=== PATIENT | female | born 1975 | race American Indian/Alaskan Native ===

== ENCOUNTER 2019-08-30 09:53 | Observation (INO) | payer MEDICAID ==
--- NOTE | 2019-08-28 13:40 | Anesthesia Consultation ---
Anesthesia Consult and Med Hx Date of service: 08/30/19 - Airway Anesthetic Teeth Evaluation: Good (crack left upper molar) ROM Head & Neck: Adequate Mental/Hyoid Distance: Adequate Mallampati Class: Class III Intubation Access Assessment: Possibly Difficult - Pulmonary Exam CTA: Yes - Cardiac Exam Cardiac Exam: RRR - Pre-Operative Health Status ASA Pre-Surgery Classification: ASA2 Proposed Anesthetic Plan: General Nerve Block: TAP - Pulmonary Hx Smoking: No Hx Respiratory Symptoms: No - Cardiovascular System Hx Hypertension: Yes Hx Heart Attack/AMI: No Hx Percutaneous Transluminal Coronary Angioplasty (PTCA): No - Central Nervous System CVA: No Hx Psychiatric Problems: No - Gastrointestinal Hx Gastroesophageal Reflux Disease: Yes (well controlled; no meds) - Endocrine Hx Renal Disease: No Hx Liver Disease: No Hx Insulin Dependent Diabetes: No Hx Non-Insulin Dependent Diabetes: No Hx Thyroid Disease: No - Hematic Hx Anemia: Yes (no transfusion hx) - Other Systems Hx Obesity: Yes (BMI 33) - Additional Comments Anesthesia Medical History Comments: No hx anesthetic complications. BP significantly elevated at pre-assessment appointment though patient reports much lower at office visit earlier in the day. Instructed to take both antihypertensives DOS.
[2019-08-28 13:50] LABS: Basophils # (Auto) 0.1 K/mm3 (0.0-0.1); Basophils % (Auto) 2.1 % (0.0-1.8); Eosinophils % (Auto) 0.5 % (0.0-4.3); Hematocrit 35.6 % (30.3-42.9); Hemoglobin 11.3 gm/dl (10.1-14.3); Lymphocytes # (Auto) 1.2 K/mm3 (1.2-5.4); Lymphocytes % (Auto) 36.6 % (13.4-35.0); Mean Corpuscular HGB Conc 32 % (30-34); Mean Corpuscular Volume 81 fl (79-97); Monocytes # (Auto) 0.4 K/mm3 (0.0-0.8); Monocytes % (Auto) 13.5 % (0.0-7.3); Platelet Count 320 K/mm3 (140-440); Red Blood Count 4.38 M/mm3 (3.65-5.03); Red Cell Distribution Width 16.9 % (13.2-15.2)
[2019-08-28 13:54] LABS: BUN/Creatinine Ratio 17; Blood Urea Nitrogen 10 mg/dL (7-17); Calcium 9.2 mg/dL (8.4-10.2); Hemolysis Index 14
--- NOTE | 2019-08-30 07:36 | History and Physical Report ---
History of Present Illness Date of examination: 08/30/19 Date of admission: August 30, 2019 Chief complaint: Dysmenorrhea and dysfunctional uterine bleeding History of present illness: 44-year-old -0-0-2 with a history of dysfunctional uterine bleeding. The patient has a known history of uterine fibroids and has been experiencing painful heavy menses. Ultrasound demonstrated findings of leiomyomas and an enlarged uterus. The patient is elected to undergo definitive surgical management. 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 Social history: single - Obstetrical History : 2 Para: 2 Hx # Term Pregnancies: 2 Number of Pregnancies: 0 Spontaneous Abortions: 0 Induced : 0 Number of Living Children: 2 Medications and Allergies Allergies Allergy/AdvReac Type Severity Reaction Status Date / Time latex Allergy Hives Verified 08/18/19 10:54 Home Medications Medication Instructions Recorded Confirmed Last Taken Type Losartan/Hydrochlorothiazide 1 each PO DAILY 08/18/19 08/18/19 Unknown History [Losartan-Hctz 50-12.5 mg Tab] amLODIPine [Norvasc] 10 mg PO DAILY 08/18/19 08/18/19 Unknown History Active Meds: Active Medications Celecoxib (Celebrex) 200 mg PO PREOP NR Stop: 08/30/19 23:59 Fentanyl (Sublimaze) 100 mcg IV ONCE PRN PRN Reason: sedation for nerve block Gabapentin (Gabapentin) 600 mg PO PREOP NR Stop: 08/30/19 23:59 Lactated Ringer's (Lactated Ringers) 1,000 mls @ 100 mls/hr IV DIRECT MYRON Magnesium Oxide (Mag-Ox) 400 mg PO PREOP MYRON Midazolam HCl (Versed) 2 mg IV PREOP NR Stop: 08/30/19 23:59 Review of Systems All systems: negative Genitourinary: vaginal bleeding, pelvic pain - Vital Signs Vital signs: Vital Signs Temp Pulse Resp BP Pulse Ox 97.8 F 76 20 188/106 98 08/28/19 12:45 08/28/19 12:45 08/28/19 12:45 08/28/19 12:45 08/28/19 12:45 Temp Pulse Resp BP Pulse Ox 97.8 F 76 20 188/106 98 08/28/19 12:45 08/28/19 12:45 08/28/19 12:45 08/28/19 12:45 08/28/19 12:45 - Physical Exam Breasts: Positive: deferred Cardiovascular: Regular rate Lungs: Positive: Clear to auscultation Abdomen: Positive: normal appearance Results Result Diagrams: 08/28/19 12:50 08/28/19 12:50 All other labs normal. Assessment and Plan - Patient Problems (1) Leiomyoma Status: Acute Plan to address problem: The patient is scheduled to undergo a robotic hysterectomy (2) Dysmenorrhea Status: Acute (3) Menorrhagia Status: Acute
[~2019-08-30 09:53] MED LIST: CELECOXIB 200 MG CAP PO NR; GABAPENTIN 300 MG CAP PO NR; LACTATED RINGERS 1,000 ML IV SCH; MAGNESIUM OXIDE 400 MG TAB PO SCH; MIDAZOLAM 2 MG/2 ML INJ IV NR; ceFAZolin/Water 2 GM/20 ML 2 GM/20 ML SYRINGE IV NR; fentaNYL 100 MCG/2 ML INJ IV PRN
[2019-08-30] MEDS ORDERED: BUPIVACAINE/PF (0.25%) 2.5 MG/ML 30 ML VIAL INFILTRATI ONE (10:17)
[2019-08-30] MEDS ORDERED: dexAMETHasone 4 MG/ML VIAL ONE (10:18)
[2019-08-30] MEDS ORDERED: NEOMY 40 MG/POLYMYXIN B 200,000 UNITS/ML (GU) AMPULE IR ONE ×2 (10:23→12:18)
[2019-08-30] MEDS ORDERED: HYDROmorphone 1 MG/1 ML INJ IV PRN (10:29)
--- NOTE | 2019-08-30 10:29 | Anesthesia Day of Surgery ---
Anesthesia Day of Surgery - Day of Surgery Patient Examined: Yes Patient H&P Reviewed: Yes Patient is NPO: Yes
[2019-08-30] MEDS ORDERED: HYDROmorphone 1 MG/1 ML INJ ONE (11:04)
[2019-08-30] MEDS ORDERED: propofoL 200 MG/20 ML VIAL IV ONE (11:05)
[2019-08-30] MEDS ORDERED: LIDOCAINE MPF (2%) 20 MG/1 ML VIAL 5 ML ONE (11:05)
[2019-08-30] MEDS ORDERED: ROCURONIUM 50 MG/5 ML INJ IV ONE (11:06)
[2019-08-30] MEDS ORDERED: SODIUM CHLORIDE 0.9% IRR 1,500 ML BOTTLE IR ONE (12:18)
[2019-08-30] MEDS ORDERED: SODIUM CHLORIDE 0.9% IRRIG SOLN 2000 ML IR ONE (12:19)
--- NOTE | 2019-08-30 12:40 | Operative Report ---
Operative Report Operative Report: Date of surgery: August 30, 2019 Preoperative diagnoses: Symptomatic uterine fibroids; menorrhagia; dysmenorrhea Postoperative diagnoses: Same as above Procedure: Robotic hysterectomy; bilateral salpingectomy Surgeon: Krissy Emmanuel M.D. Publications Manager: Carrie Castro Anesthesia: Gen. endotracheal anesthesia Estimated blood loss: 125 mL Pathology: Uterus, cervix, leiomyomas, bilateral tubes Indication: 44-year-old -0-0-2 with a history of symptomatic uterine fibroids. The patient elected for definitive surgical management. Procedure: The patient was taken to the operating room and given general endotracheal anesthesia without complication. She is prepped and draped in a normal sterile fashion. A bivalve speculum was placed in the patient's vagina and a single- tooth tenaculum placed on the anterior lip of the cervix. The uterus was sounded with the uterine sound. A Frontierre uterine manipulator was placed in the bivalve speculum was then removed. Attention was then turned to the patient's abdomen where a millimeter supra umbilical skin incision was then made. A Veres s needle was placed and peritoneal entry was verified water-filled syringe. Insufflation of the peritoneal cavity was performed with CO2 gas. The 12 mm trocar was then placed under direct visualization. An additional 8 mm trocar was placed on the patient's left and right lateral side just opposite of the supraumbilical trocar. An additional 5 mm right lateral trocar was then placed as the accessory port. The patient was then placed in steep Trendelenburg. The da Ry robot was then engaged. A fenestrated forcep was placed in arm 2 and a vessel sealer was placed in arm 1. The surgeon then transferred to the surgical console. General survey revealed an enlarged fibroid uterus with normal tubes and ovaries bilaterally. Surgical findings were consistent with a prior tubal ligation. The mesosalpinx was then isolated on the right. The vessel sealer was used to coagulate the mesosalpinx which was then transected. The tube was transected from the ovary. The tubo-ovarian ligament was then coagulated and transected. The round ligament was then coagulated and transected also. The vesicouterine peritoneum was then entered from the patient's right side. The uterine vessels were then coagulated with the vessel sealer. The vessels were then transected . Attention was then turned to the patient's left side where the tubo-ovarian ligament and mesosalpinx were again isolated coagulated and transected. The vesical peritoneum was then entered from the left and joined in the midline. Peritoneum was reflected off of the lower uterine segment. Uterine vessels were then coagulated and then transected. The blood supply to the uterus was adequately contained, a posterior colpotomy was made. The V care ring was visualized. Posterior colpotomy was created with the monopolar scissors. The incision was continued circumferentially until anterior colpotomy was made. The cervix and uterus were amputated from the vaginal cuff. The uterus is bivalved in order to facilitate delivery through the vagina. The uterus was then removed along with the tubes bilaterally through the vagina and a warm laparotomy sponge was placed and maintain the pneumoperitoneum. The vaginal cuff was then closed in a running fashion with V lock suture. Irrigation of the pelvis was performed. Hemoblast was applied to the incision. The supraumbilical 12 mm trocar site was closed with the Sarwat Patel device. The skin was then reapproximated with 4-0 Monocryl. The tissue was sent to pathology which included the cervix, leiomyoma, bilateral tubes and uterus. The patient was then successfully extubated. She was then taken to the recovery room in stable condition. All sponge laps and needle counts were correct x2.
[2019-08-30] MEDS ORDERED: oxyCODONE /ACETAMINOPHEN 5-325MG TAB PO PRN (12:41)
[2019-08-30] MEDS ORDERED: MORPHINE 4 MG/1 ML INJ IV PRN (12:41)
[2019-08-30] MEDS ORDERED: ZOLPIDEM 5 MG TAB PO PRN (12:41)
[2019-08-30] MEDS ORDERED: ONDANSETRON 4 MG/2 ML INJ IV PRN (12:41)
[2019-08-30] MEDS ORDERED: GLYCOPYRROLATE 0.4 MG/2 ML INJ ONE (12:59)
[2019-08-30] MEDS ORDERED: NEOSTIGMINE 10MG/10 ML INJ MDV ONE (12:59)
[2019-08-30] MEDS ORDERED: ONDANSETRON 4 MG/2 ML INJ ONE (13:00)
[2019-08-30] MEDS ORDERED: KETOROLAC 30 MG/1 ML INJ ONE (13:08)
[2019-08-30] MEDS ORDERED: MEPERIDINE 25 MG/1 ML INJ ONE (13:10)
[2019-08-30] MEDS ORDERED: MEPERIDINE 25 MG/1 ML INJ IV PRN (13:20)
[2019-08-30] MEDS: KETOROLAC 30 MG/1 ML INJ IV SCH ×2 (13:23→20:30)
[2019-08-30] MEDS ORDERED: D5W/LACTATED RINGERS 1,000 ML IV ONE (13:36)
--- NOTE | 2019-08-30 14:38 | Post Anesthesia Evaluation ---
- Post Anesthesia Evaluation Patient Participated: Yes Airway Patent: Yes Stable Respiratory Function: Yes Nausea/Vomiting: No Temp > 96.8F: Yes Pain Manageable: Yes Adequeate Hydration: Yes Anesthesia Complications: No
[2019-08-30] MEDS ORDERED: IBUPROFEN 600 MG TAB PO SCH (18:00)
[2019-08-30] MEDS: D5W/LACTATED RINGERS 1,000 ML IV SCH (20:41)
[2019-08-31] MEDS: D5W/LACTATED RINGERS 1,000 ML IV SCH (04:49)
[2019-08-31] MEDS: KETOROLAC 30 MG/1 ML INJ IV SCH (04:50)
[2019-08-31 06:01] LABS: Hematocrit 33.8 % (30.3-42.9); Hemoglobin 10.6 gm/dl (10.1-14.3)
--- NOTE | 2019-08-31 08:06 | Progress Note ---
Assessment and Plan - Patient Problems (1) Leiomyoma Current Visit: No Status: Acute Plan to address problem: patient doing well discharge home (2) Dysmenorrhea Current Visit: No Status: Acute (3) Menorrhagia Current Visit: No Status: Acute Subjective - Subjective Date of service: 08/31/19 Interval history: Patient reports feeling well. States she has voided. Pain well controlled Patient reports: appetite normal, voiding normally, pain well controlled Objective - Vital Signs Latest vital signs: Vital Signs Temp Pulse Resp BP Pulse Ox 08/31/19 04:19 98.0 F 63 20 136/70 97 08/30/19 23:22 98.5 F 76 20 122/63 95 08/30/19 20:16 98.2 F 86 20 150/88 97 08/30/19 17:36 97.8 F 87 18 123/72 96 08/30/19 14:16 97.4 F L 75 18 125/77 97 08/30/19 14:00 77 14 124/71 100 08/30/19 13:45 98 F 66 16 123/77 100 08/30/19 13:30 12 08/30/19 13:25 70 14 134/81 100 08/30/19 13:23 16 08/30/19 13:17 68 16 144/88 100 08/30/19 13:10 14 08/30/19 13:05 71 16 129/88 100 08/30/19 13:00 73 16 134/84 100 08/30/19 12:57 97.8 F 100 H 16 135/88 100 08/30/19 11:05 91 H 11 L 148/85 100 08/30/19 11:00 67 17 152/85 100 08/30/19 10:56 16 08/30/19 10:55 84 17 162/104 100 08/30/19 10:25 99 F 91 H 12 153/93 100 08/30/19 10:20 16 08/30/19 10:10 99 F 91 H 12 153/93 100 Intake and Output 08/30/19 08/31/19 08/31/19 22:59 06:59 14:59 Intake Total 1240 Balance 1240 Intake: IV 1000 D5lr 1,000 ml @ 125 mls/ 1000 hr IV DIRECT MYRON Rx#: [id number] Oral 240 Other: Total, Intake Amount 240 Voiding Method Indwelling Catheter Toilet # Voids Indwelling Catheter 350 1,100 Void 1 - Exam Abdomen: Present: normal appearance, soft
--- NOTE | 2019-08-31 08:08 | Discharge Summary ---
Providers - Providers Date of Admission: 08/30/19 12:41 Date of discharge: 08/31/19 Attending physician: JERROD BEEBE Primary care physician: EMMA MEYER Hospitalization Reason for admission: other (uterine fibroids) Procedure: other (robotic hysterectomy) Incision: normal Discharge diagnosis: other (Uterine fibroids) Hospital course: Patient admitted the day of surgery and underwent a robotic hysterectomy. See op note. Postop unremarkable Condition at discharge: Good Disposition: [id number] TO HOME OR SELFCARE - Discharge Diagnoses (1) Leiomyoma Status: Acute (2) Dysmenorrhea Status: Acute (3) Menorrhagia Status: Acute Plan - Discharge Medications Prescriptions: Docusate Sodium [Colace] 100 mg PO BID PRN #60 capsule PRN Reason: Constipation Ibuprofen [Motrin] 800 mg PO Q8HR PRN #60 tablet PRN Reason: Pain, Mild (1-3) oxyCODONE /ACETAMINOPHEN [Percocet 5/325] 1 tab PO Q6HR PRN #30 tablet PRN Reason: Pain - Provider Discharge Summary Activity: no sex for 6 weeks, no heavy lifting 4 weeks, no strenuous exercise Diet: routine Instructions: routine Additional instructions: [] Smoking cessation referral if applicable(refer to patient education folder for contact #) [] Refer to [facility] Booklet Call your doctor immediately for: * Fever > 100.5 * Heavy vaginal bleeding ( >1 pad per hour) * Severe persistent headache * Shortness of breath * Reddened, hot, painful area to leg or breast * Drainage or odor from incision. * Keep incision clean and dry at all times and follow doctor's instructions regarding bathing/showering schedule followup in 4 weeks - Follow up plan Forms: [facility] Discharge Summary
[2019-08-31 09:01] VITALS: BP 144/82
== END 2019-08-31 10:20 | disposition home or self-care (01) ==
LOC: OR 09:53 → OB 12:41
PROVIDERS: ADMIT Obstetrics & Gynecology; ATTEND Obstetrics & Gynecology
DX: D25.9 Leiomyoma of uterus, unspecified (principal); N92.0 Excessive and frequent menstruation with regular cycle; N94.6 Dysmenorrhea, unspecified; I10 Essential (primary) hypertension; Z98.51 Tubal ligation status
CPT/HCPCS: 36415; 58573; 64450; 80048; 84703; 85014; 85018; 85025; 86850; 86900; 86901; 88307; 96374; 96375; 96376; A4217; G0378; J0690; J1100; J1170; J1885; J2175; J2250; J2270; J2405; J2704; J2710; J3010; J7120; J7121; S2900

== ENCOUNTER 2019-09-14 19:24 | Observation (INO) | payer MEDICAID ==
--- NOTE | 2019-09-14 19:45 | Emergency Department Report ---
Blank Doc - Documentation Documentation: 44-year-old female that presents with postop hysterectomy bleeding and complic ations. Was sent by OB. This initial assessment/diagnostic orders/clinical plan/treatment(s) is/are subject to change based on patient's health status, clinical progression and re- assessment by fellow clinical providers in the ED. Further treatment and workup at subsequent clinical providers discretion. Patient/guardians urged not to elope from the ED as their condition may be serious if not clinically assessed and managed. Initial orders include: 1- Patient sent to MAIN ED for further evaluation and treatment 2- labs 3- UA
--- NOTE | 2019-09-14 20:42 | Emergency Department Report ---
ED Female HPI - General Chief complaint: Vaginal Bleeding Stated complaint: VAG BLEED Time Seen by Provider: 09/14/19 19:44 Source: patient Mode of arrival: Ambulatory Limitations: No Limitations - History of Present Illness Initial comments: 44-year-old female status post robotic hysterectomy and bilateral salpingectomy for symptomatic uterine fibroids on August 29 presents to the hospital with vaginal bleeding since yesterday. Yesterday patient had some bleeding with passage of clots. Patient did not have any bleeding this morning but by 5:30 PM she had passed several clots and used 2 pads. Patient complains of right lower quadrant abdominal pain that is moderate and worse with palpation. She denies lightheadedness, dizziness, or fever. She was told by her FIELD NURSE CASE MANAGER that a stitch might have come out and she needs to come to the hospital. - Related Data Home Medications Medication Instructions Recorded Confirmed Last Taken Losartan/Hydrochlorothiazide 1 each PO DAILY 08/18/19 08/30/19 08/29/19 20:00 [Losartan-Hctz 50-12.5 mg Tab] amLODIPine [Norvasc] 10 mg PO DAILY 08/18/19 08/30/19 08/29/19 20:00 Previous Rx's Medication Instructions Recorded Last Taken Type Docusate Sodium [Colace] 100 mg PO BID PRN #60 capsule 08/31/19 Unknown Rx Ibuprofen [Motrin] 800 mg PO Q8HR PRN #60 tablet 08/31/19 Unknown Rx oxyCODONE /ACETAMINOPHEN [Percocet 1 tab PO Q6HR PRN #30 tablet 08/31/19 Unknown Rx 5/325] Allergies Allergy/AdvReac Type Severity Reaction Status Date / Time latex Allergy Hives Verified 08/18/19 10:54 ED Review of Systems ROS: Stated complaint: VAG BLEED Other details as noted in HPI Comment: All other systems reviewed and negative ED Past Medical Hx - Past Medical History Hx Hypertension: Yes (Over 5 years) Hx GERD: Yes Hx Headaches / Migraines: Yes (Migraines) - Surgical History Additional Surgical History: tubal ligation - Social History Smoking Status: Never Smoker Substance Use Type: None - Medications Home Medications: Home Medications Medication Instructions Recorded Confirmed Last Taken Type Losartan/Hydrochlorothiazide 1 each PO DAILY 08/18/19 08/30/19 08/29/19 20:00 History [Losartan-Hctz 50-12.5 mg Tab] amLODIPine [Norvasc] 10 mg PO DAILY 08/18/19 08/30/19 08/29/19 20:00 History Docusate Sodium [Colace] 100 mg PO BID PRN #60 capsule 08/31/19 Unknown Rx Ibuprofen [Motrin] 800 mg PO Q8HR PRN #60 tablet 08/31/19 Unknown Rx oxyCODONE /ACETAMINOPHEN [Percocet 1 tab PO Q6HR PRN #30 tablet 08/31/19 Unknown Rx 5/325] ED Physical Exam - General Limitations: No Limitations - Other Other exam information: General: No acute distress Head: Atraumatic Eyes: normal appearance ENT: Moist mucous membranes Neck: Normal appearance, no midline tenderness Chest: Clear to auscultation bilaterally CV: Regular rate and rhythm Abdomen: Soft, normal bowel sounds, right lower quadrant tenderness no rebound no guarding Back: Normal inspection Extremity: Normal inspection, full range of motion Neuro: Alert O x 3, no facial asymmetry, speech clear, no gross motor sensory deficit Psych: Appropriate behavior Skin: No rash ED Course Vital Signs 09/14/19 09/14/19 09/14/19 19:43 20:38 20:46 Temperature 99.3 F Pulse Rate 103 H 74 Respiratory 16 21 Rate Blood Pressure 135/107 Blood Pressure [Right] O2 Sat by Pulse 98 99 100 Oximetry 09/14/19 09/14/19 09/14/19 20:50 21:00 21:34 Temperature Pulse Rate 79 75 Respiratory 19 14 Rate Blood Pressure 158/96 158/96 Blood Pressure 158/96 [Right] O2 Sat by Pulse 100 100 100 Oximetry 09/14/19 09/14/19 09/14/19 21:46 22:14 22:16 Temperature Pulse Rate 72 77 96 H Respiratory 15 24 20 Rate Blood Pressure 176/89 176/89 176/89 Blood Pressure [Right] O2 Sat by Pulse 100 97 100 Oximetry 09/14/19 22:30 Temperature Pulse Rate Respiratory Rate Blood Pressure 158/98 Blood Pressure [Right] O2 Sat by Pulse Oximetry - Reevaluation(s) Reevaluation #1: 09/14/19 23:01 pt states bleeding has improved. Pt has passed one small clot since 09/14/19 23:05 pt informed FIELD NURSE CASE MANAGER to examine her prior to d/c - Consultations Consultation #1: 09/14/19 20:46 case d/w Dr Tamia Castro, rec ct scan. 09/14/19 23:05 case rediscounted. She will come into the ed to examine pt. 09/15/19 00:20 after ed eval pt will be admitted by aba tutor ED Medical Decision Making - Lab Data Result diagrams: 09/14/19 20:56 09/14/19 20:56 Lab Results 09/14/19 09/14/19 09/14/19 Range/Units 20:56 20:56 21:38 WBC 4.9 (4.5-11.0) K/mm3 RBC 4.25 (3.65-5.03) M/mm3 Hgb 10.8 (10.1-14.3) gm/dl Hct 34.4 (30.3-42.9) % MCV 81 (79-97) fl MCH 26 L (28-32) pg MCHC 32 (30-34) % RDW 15.9 H (13.2-15.2) % Plt Count 394 (140-440) K/mm3 Lymph % (Auto) 24.9 (13.4-35.0) % [place] % (Auto) 14.9 H (0.0-7.3) % Eos % (Auto) 0.4 (0.0-4.3) % Baso % (Auto) 2.0 H (0.0-1.8) % Lymph # 1.2 (1.2-5.4) K/mm3 [place] # 0.7 (0.0-0.8) K/mm3 Eos # 0.0 (0.0-0.4) K/mm3 Baso # 0.1 (0.0-0.1) K/mm3 Seg Neutrophils % 57.8 (40.0-70.0) % Seg Neutrophils # 2.8 (1.8-7.7) K/mm3 Sodium 139 (137-145) mmol/L Potassium 3.5 L (3.6-5.0) mmol/L Chloride 103.4 (98-107) mmol/L Carbon Dioxide 22 (22-30) mmol/L Anion Gap 17 mmol/L BUN 7 (7-17) mg/dL Creatinine 0.7 (0.7-1.2) mg/dL Estimated GFR > 60 ml/min BUN/Creatinine Ratio 10 % Glucose 103 H (65-100) mg/dL Calcium 9.2 (8.4-10.2) mg/dL Total Bilirubin < 0.20 (0.1-1.2) mg/dL AST 46 H (5-40) units/L ALT 47 (7-56) units/L Alkaline Phosphatase 90 (35-129) units/L Total Protein 7.9 (6.3-8.2) g/dL Albumin 3.7 L (3.9-5) g/dL Albumin/Globulin Ratio 0.9 % Urine Color Yellow (Yellow) Urine Turbidity Slightly-cloudy (Clear) Urine pH 6.0 (5.0-7.0) Ur Specific [place] 1.024 (1.003-1.030) Urine Protein 30 mg/dl (Negative) mg/dL Urine Glucose (UA) Neg (Negative) mg/dL Urine Ketones Neg (Negative) mg/dL Urine Blood Lg (Negative) Urine Nitrite Neg (Negative) Urine Bilirubin Neg (Negative) Urine Urobilinogen < 2.0 (<2.0) mg/dL Ur Leukocyte Esterase Neg (Negative) Urine WBC (Auto) 2.0 (0.0-6.0) /HPF Urine RBC (Auto) 146.0 (0.0-6.0) /HPF U Epithel Cells (Auto) 8.0 (0-13.0) /HPF Urine Mucus 3+ /HPF - Radiology Data Radiology results: report reviewed CT ABDOMEN AND PELVIS WITH CONTRAST INDICATION / CLINICAL INFORMATION: Post hysterectomy / bilateral salpingectomy, vaginal bleeding. TECHNIQUE: Axial CT images were obtained through the abdomen and pelvis after 100 mL Omnipaque [address] scans at this location are performed using CT dose reduction for ALARA by means of automated exposure control. COMPARISON: None available. FINDINGS: LOWER CHEST: No significant abnormality. LIVER: No significant abnormality. GALLBLADDER: No significant abnormality. BILE DUCTS: No significant abnormality. PANCREAS: No significant abnormality. SPLEEN: No significant abnormality. ADRENALS: No significant abnormality. RIGHT KIDNEY and URETER: No significant abnormality. LEFT KIDNEY and URETER: No significant abnormality. STOMACH and SMALL BOWEL: No significant abnormality. COLON: No significant ab normality. APPENDIX: No significant abnormality. PERITONEUM: Small amount of free fluid in the dependent pelvis. No free air. No fluid collection. LYMPH NODES: No significant adenopathy. AORTA and ARTERIES: No significant abnormality. IVC and VEINS: No significant abnormality. URINARY BLADDER: No si gnificant abnormality. REPRODUCTIVE ORGANS: Uterus is absent. No significant adnexal abnormality. ADDITIONAL FINDINGS: Fat-containing supraumbilical hernia with a small amount of fluid but no bowel. SKELETAL SYSTEM: No significant abnormality. IMPRESSION: 1. No inflammatory process or bowel obstruction 2. Small amount of free fluid in the pelvis but no organized collection or hematoma. 3. Hysterectomy. - Medical Decision Making She states that bleeding is decreasing. Patient does not require blood transfusion. After evaluation by FIELD NURSE CASE MANAGER attending Dr. Tamia Castro it was decided patient to be admitted for observation and re-evaluated by Dr. Sr Gwyn porter - Differential Diagnosis Postop bleeding, anemia Critical Care Time: No Critical care attestation.: If time is entered above; I have spent that time in minutes in the direct care of this critically ill patient, excluding procedure time. ED Disposition Clinical Impression: Postoperative vaginal bleeding, Status post bilateral salpingectomy, S/P hysterectomy Disposition: OP ADMIT IP TO THIS HOSP Is pt being admited?: Yes Condition: Stable Time of Disposition: 00:20 (Dr Tamia castro)
[2019-09-14] MEDS ORDERED: SODIUM CHLORIDE 0.9% 1000 ML 1,000 ML IV ONE (20:49)
[2019-09-14 21:17] LABS: Basophils # (Auto) 0.1 K/mm3 (0.0-0.1); Eosinophils % (Auto) 0.4 % (0.0-4.3); Hematocrit 34.4 % (30.3-42.9); Hemoglobin 10.8 gm/dl (10.1-14.3); Lymphocytes # (Auto) 1.2 K/mm3 (1.2-5.4); Lymphocytes % (Auto) 24.9 % (13.4-35.0); Mean Corpuscular HGB Conc 32 % (30-34); Mean Corpuscular Volume 81 fl (79-97); Monocytes # (Auto) 0.7 K/mm3 (0.0-0.8); Monocytes % (Auto) 14.9 % (0.0-7.3); Platelet Count 394 K/mm3 (140-440); Red Blood Count 4.25 M/mm3 (3.65-5.03); Red Cell Distribution Width 15.9 % (13.2-15.2)
[2019-09-14 21:38] LABS: Alanine Aminotransferase 47 units/L (7-56); Albumin 3.7 g/dL (3.9-5); BUN/Creatinine Ratio 10; Blood Urea Nitrogen 7 mg/dL (7-17); Calcium 9.2 mg/dL (8.4-10.2); Hemolysis Index 11
[2019-09-14 21:51] LABS: Bilirubin,Urine NEG (Negative); Blood,Urine LG (Negative); Color,Urine Yellow (Yellow); Mucus,Urine 3+ /HPF; Urobilinogen,Urine < 2.0 mg/dL (<2.0)
--- NOTE | 2019-09-14 22:48 | Cat Scan Report ---
CT ABDOMEN AND PELVIS WITH CONTRAST INDICATION / CLINICAL INFORMATION: Post hysterectomy / bilateral salpingectomy, vaginal bleeding. TECHNIQUE: Axial CT images were obtained through the abdomen and pelvis after 100 mL Omnipaque [address] scans at this location are performed using CT dose reduction for ALARA by means of automated exposure control. COMPARISON: None available. FINDINGS: LOWER CHEST: No significant abnormality. LIVER: No significant abnormality. GALLBLADDER: No significant abnormality. BILE DUCTS: No significant abnormality. PANCREAS: No significant abnormality. SPLEEN: No significant abnormality. ADRENALS: No significant abnormality. RIGHT KIDNEY and URETER: No significant abnormality. LEFT KIDNEY and URETER: No significant abnormality. STOMACH and SMALL BOWEL: No significant abnormality. COLON: No significant abnormality. APPENDIX: No significant abnormality. PERITONEUM: Small amount of free fluid in the dependent pelvis. No free air. No fluid collection. LYMPH NODES: No significant adenopathy. AORTA and ARTERIES: No significant abnormality. IVC and VEINS: No significant abnormality. URINARY BLADDER: No significant abnormality. REPRODUCTIVE ORGANS: Uterus is absent. No significant adnexal abnormality. ADDITIONAL FINDINGS: Fat-containing supraumbilical hernia with a small amount of fluid but no bowel. SKELETAL SYSTEM: No significant abnormality. IMPRESSION: 1. No inflammatory process or bowel obstruction 2. Small amount of free fluid in the pelvis but no organized collection or hematoma. 3. Hysterectomy. Signer Name: Ney Abebe MD Signed: 09/14/2019 10:43 PM Workstation Name: [id number]
[2019-09-15] MEDS ORDERED: NALOXONE 0.4 MG/1 ML INJ IV PRN (00:22)
[2019-09-15] MEDS ORDERED: oxyCODONE /ACETAMINOPHEN 5-325MG TAB PO PRN (00:22)
--- NOTE | 2019-09-15 00:31 | History and Physical Report ---
History of Present Illness Date of examination: 09/15/19 Chief complaint: vaginal bleeding History of present illness: Pt is a 44 year old s/p robotic hysterectomy, bilateral salpingectomy on 08/30/19 presents with worsening vaginal bleeding since yesterday after an episode of constipation. She denies anything in the vagina or heavy lifting. 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: fibroids Family/Genetic History: none Social history: no significant social history Medications and Allergies Allergies Allergy/AdvReac Type Severity Reaction Status Date / Time latex Allergy Hives Verified 08/18/19 10:54 Home Medications Medication Instructions Recorded Confirmed Last Taken Type Losartan/Hydrochlorothiazide 1 each PO DAILY 08/18/19 08/30/19 08/29/19 20:00 H istory [Losartan-Hctz 50-12.5 mg Tab] amLODIPine [Norvasc] 10 mg PO DAILY 08/18/19 08/30/19 08/29/19 20:00 History Docusate Sodium [Colace] 100 mg PO BID PRN #60 capsule 08/31/19 Unknown Rx Ibuprofen [Motrin] 800 mg PO Q8HR PRN #60 tablet 08/31/19 Unknown Rx oxyCODONE /ACETAMINOPHEN [Percocet 1 tab PO Q6HR PRN #30 tablet 08/31/19 Unknown Rx 5/325] Active Meds: Active Medications Dextrose/Lactated Ringer's (D5lr) 1,000 mls @ 100 mls/hr IV DIRECT MYRON Ibuprofen (Ibuprofen) 800 mg PO Q8H MYRON Naloxone HCl (Naloxone) 0.1 mg IV Q2MIN PRN PRN Reason: Res Rate </= 8 or 02 SAT < 92% Oxycodone/Acetaminophen (Percocet 5/325) 2 tab PO Q4H PRN PRN Reason: Pain, Moderate (4-6) Review of Systems All systems: negative - Vital Signs Vital signs: Vital Signs Temp Pulse Resp BP Pulse Ox 99.3 F 103 H 16 135/107 98 09/14/19 19:43 09/14/19 19:43 09/14/19 19:43 09/14/19 19:43 09/14/19 19:43 Temp Pulse Resp BP Pulse Ox 99.3 F 96 H 20 158/98 100 09/14/19 19:43 09/14/19 22:16 09/14/19 22:16 09/14/19 22:30 09/14/19 22:16 - Physical Exam Vagina: Positive: other (deep red blood in the vault,no clots presently; cuff appears intact, suture in place ) Uterus: Positive: absent Results Result Diagrams: 09/14/19 20:56 09/14/19 20:56 Abnormal lab results 09/14/19 09/14/19 Range/Units 20:56 20:56 MCH 26 L (28-32) pg RDW 15.9 H (13.2-15.2) % [place] % (Auto) 14.9 H (0.0-7.3) % Baso % (Auto) 2.0 H (0.0-1.8) % Potassium 3.5 L (3.6-5.0) mmol/L Glucose 103 H (65-100) mg/dL AST 46 H (5-40) units/L Albumin 3.7 L (3.9-5) g/dL All other labs normal. Assessment and Plan A: Vaginal Bleeding after hysterectomy on 08/30/19 Hypertension P: Admit for observation Pad counts
[2019-09-15] MEDS ORDERED: D5W/LACTATED RINGERS 1,000 ML IV SCH (01:00)
[2019-09-15] MEDS ORDERED: IBUPROFEN 800 MG TAB ONE (01:06)
[2019-09-15] MEDS: IBUPROFEN 800 MG TAB PO SCH ×2 (01:06→09:00)
--- NOTE | 2019-09-15 12:02 | Short Stay Summary ---
Short Stay Documentation Date of service: 09/14/19 Narrative H&P: The patient was admitted through the emergency department secondary to evidence of vaginal bleeding status post a robotic hysterectomy. The patient states having 2 days of vaginal bleeding with the passage of a clot. She denies any fevers chills nausea vomiting. CT scan of the pelvis and abdomen was unremarkable. - History Principal diagnosis: Vaginal bleeding Past Medical History: No medical history Past Surgical History: Other (Robotic hysterectomy) Social history: no significant social history - Allergies and Medications Current Medications: Allergies latex Allergy (Verified 08/18/19 10:54) Hives Home Medications Medication Instructions Recorded Confirmed Last Taken Type Losartan/Hydrochlorothiazide 1 each PO DAILY 08/18/19 08/30/19 08/29/19 20:00 History [Losartan-Hctz 50-12.5 mg Tab] amLODIPine [Norvasc] 10 mg PO DAILY 08/18/19 08/30/19 08/29/19 20:00 History Docusate Sodium [Colace] 100 mg PO BID PRN #60 capsule 08/31/19 Unknown Rx Ibuprofen [Motrin] 800 mg PO Q8HR PRN #60 tablet 08/31/19 Unknown Rx oxyCODONE /ACETAMINOPHEN [Percocet 1 tab PO Q6HR PRN #30 tablet 08/31/19 Unknown Rx 5/325] cephALEXin [Keflex] 500 mg PO Q12HR #14 cap 09/15/19 Unknown Rx Active Medications Dextrose/Lactated Ringer's (D5lr) 1,000 mls @ 100 mls/hr IV DIRECT MYRON Ibuprofen (Ibuprofen) 800 mg PO Q8H MYRON Last Admin: 09/15/19 09:00 Dose: 800 mg Documented by: Naloxone HCl (Naloxone) 0.1 mg IV Q2MIN PRN PRN Reason: Res Rate </= 8 or 02 SAT < 92% Oxycodone/Acetaminophen (Percocet 5/325) 2 tab PO Q4H PRN PRN Reason: Pain, Moderate (4-6) - Physical exam General appearance: no acute distress Integumentary: no rash HEENT: Atraumatic Lungs: Clear to auscultation Breasts: deferred Female Genitourinary: other (Vaginal cuff intact) - Hospital course Hospital course: The patient was admitted through the emergency department for vaginal bleeding status post hysterectomy. She was admitted for observation and remained afebrile. Her hemodynamics status remained stable and her bleeding resolved. - Disposition Condition at discharge: Good Disposition: DC-01 TO HOME OR SELFCARE - Discharge Diagnoses (1) Postoperative vaginal bleeding Status: Acute Short Stay Discharge Plan Activity: other (Pelvic rest for 6 weeks) Diet: regular Additional Instructions: Keep scheduled appointment with Dr. Rosales Prescriptions: cephALEXin [Keflex] 500 mg PO Q12HR #14 cap
[2019-09-15 12:33] VITALS: BP 151/92
== END 2019-09-15 13:50 | disposition home or self-care (01) ==
LOC: ED 19:24 → OB 09-15 00:21
PROVIDERS: ADMIT Obstetrics & Gynecology; ATTEND Obstetrics & Gynecology
DX: N99.820 Postprocedural hemorrhage of a genitourinary system organ or structure following a genitourinary system procedure (principal); I10 Essential (primary) hypertension; K21.9 Gastro-esophageal reflux disease without esophagitis; G43.909 Migraine, unspecified, not intractable, without status migrainosus; Z90.710 Acquired absence of both cervix and uterus; Z79.899 Other long term (current) drug therapy; Z90.410 Acquired total absence of pancreas
CPT/HCPCS: 36415; 74177; 80053; 81001; 85025; 99285; G0378; J7030; J7121; Q9967

== ENCOUNTER 2020-11-04 11:06 | Outpatient (CLI) | payer MEDICAID ==
--- NOTE | 2020-11-04 13:37 | Short Stay Summary ---
Short Stay Documentation Date of service: 11/04/20 - History Principal diagnosis: 2.2cm left parotid mass H&P: obtained from office - Allergies and Medications Current Medications: Allergies latex Allergy (Verified 08/18/19 10:54) Hives Home Medications Medication Instructions Recorded Confirmed Last Taken Type Losartan/Hydrochlorothiazide 1 each PO DAILY 08/18/19 11/04/20 11/03/20 History [Losartan-Hctz 50-12.5 mg Tab] amLODIPine [Norvasc] 10 mg PO DAILY 08/18/19 11/04/20 11/04/20 History Levothyroxine [Synthroid] 12.5 mcg PO QAM 11/04/20 11/04/20 11/04/20 History - Physical exam General appearance: no acute distress HEENT: Other (palpable left parotid mass) - Brief post op/procedure progress note Date of procedure: 11/04/20 Pre-op diagnosis: left parotid mass Post-op diagnosis: same Procedure: US FNA Anesthesia: local Findings: 2.2cm left parotid mass Surgeon: BAKARI TALBERT Estimated blood loss: none Pathology: list (FNA x 4) Specimen disposition: to lab Condition: stable - Hospital course Hospital course: uneventful - Disposition Condition at discharge: Good Disposition: DC-01 TO HOME OR SELFCARE Short Stay Discharge Plan Follow up with: PRIMARY CARE, [Primary Care Provider] - 7 Days
[2020-11-04 13:55] VITALS: BP 178/101
--- NOTE | 2020-11-04 14:47 | Ultrasound Report ---
ULTRASOUND BIOPSY SOFT TISSUE NECK OR CHEST HISTORY: Lump on left side of neck, left parotid mass DESCRIPTION OF PROCEDURE: Informed consent was obtained. A timeout was performed. The left neck regio n was prepped and draped in sterile fashion. Skin anesthetization was accomplished with 1% lidocaine. Using ultrasound guidance, 4 fine-needle aspirations were obtained from a 2.2 cm well-defined hypoec hoic lesion in the left parotid region. The patient tolerated the procedure without difficulty and le ft radiology in stable condition. IMPRESSION: Successful ultrasound-guided FNA of the 2.2 cm left parotid mass. Signer Name: Adan Villeda Jr, MD Signed: 11/04/2020 2:42 PM Workstation Name: [id number]
== END 2020-11-04 14:00 | disposition home or self-care (01) ==
LOC: CATHLABREC 11:06 → US 11:06 → CATHLABREC 14:00
PROVIDERS: ATTEND Otolaryngology
DX: R22.1 Localized swelling, mass and lump, neck (principal); R44.9 Unspecified symptoms and signs involving general sensations and perceptions; K11.20 Sialoadenitis, unspecified; G43.909 Migraine, unspecified, not intractable, without status migrainosus; I10 Essential (primary) hypertension; K21.9 Gastro-esophageal reflux disease without esophagitis; E66.9 Obesity, unspecified; Z90.721 Acquired absence of ovaries, unilateral; Z91.041 Radiographic dye allergy status; Z88.8 Allergy status to other drugs, medicaments and biological substances; Z90.710 Acquired absence of both cervix and uterus; Z90.79 Acquired absence of other genital organ(s); Z98.51 Tubal ligation status; Z72.89 Other problems related to lifestyle; Z98.890 Other specified postprocedural states; Z86.2 Personal history of diseases of the blood and blood-forming organs and certain disorders involving the immune mechanism; Z68.34 Body mass index [BMI] 34.0-34.9, adult
CPT/HCPCS: 10005; 20206; 76942; 88112; 88161; 88305